=== PATIENT | male | born 2000 | race African-American/Black ===

== ENCOUNTER 2019-09-30 15:07 | Inpatient (IN) | payer OTHER ==
[~2019-09-30] VITALS: Ht 175.3 cm; Wt 86.0 kg
[2019-09-30 16:42] LABS: MEAN CORPUSCULAR HEMOGLOBIN 28.5 pg (27.0-33.0); MEAN CORPUSCULAR HGB CONC 33.3 g/dl (32.0-36.5); MEAN CORPUSCULAR VOLUME 85.4 fl (80.0-96.0); PLATELET COUNT, AUTOMATED 181 10^3/uL (150-450); RED BLOOD COUNT 4.92 10^6/uL (4.30-6.10); WHITE BLOOD COUNT 8.1 10^3/uL (4.0-10.0)
[2019-09-30 17:07] LABS: AMPHETAMINES LEVEL URINE NEGATIVE (NEGATIVE); BARBITURATES URINE NEGATIVE (NEGATIVE); BENZODIAZEPINES URINE NEGATIVE (NEGATIVE); CANNABINOIDS URINE NEGATIVE (NEGATIVE); COCAINE METABOLITE URINE NEGATIVE (NEGATIVE); METHADONE URINE NEGATIVE (NEGATIVE); OPIATES URINE NEGATIVE (NEGATIVE); PHENCYCLIDINE URINE NEGATIVE (NEGATIVE)
[2019-09-30 17:27] LABS: ACETAMINOPHEN LEVEL < 2.0 UG/ML (10.0-30.0); ALBUMIN 3.9 GM/DL (3.2-5.2); ALT/SGPT 33 U/L (12-78); BILIRUBIN,DIRECT 0.3 MG/DL (0.0-0.2); BILIRUBIN,TOTAL 0.8 MG/DL (0.2-1.0); BLOOD UREA NITROGEN 12 MG/DL (7-18); CALCIUM LEVEL 8.9 MG/DL (8.5-10.1); CARBON DIOXIDE LEVEL 31 MEQ/L (21-32); CHLORIDE LEVEL 104 MEQ/L (98-107); CREATININE FOR GFR 1.02 MG/DL (0.70-1.30); ETHYL ALCOHOL (ETHANOL) < 0.003 % (0.000-0.010); GLUCOSE, FASTING 96 MG/DL (70-100); SALICYLATE LEVEL < 1.7 MG/DL (5.0-30.0); SODIUM LEVEL 140 MEQ/L (136-145); TOTAL PROTEIN 7.3 GM/DL (6.4-8.2)
[2019-09-30] MEDS ORDERED: ACETAMINOPHEN TAB 650MG DOSE (2X325MG) PO PRN (18:30)
[2019-09-30] MEDS ORDERED: MAALOX 30 ML SUSP *UDC PO PRN (18:30)
[2019-09-30] MEDS ORDERED: traZODone 50 MG TAB PO PRN (18:30)
[2019-09-30] MEDS ORDERED: MOM 30ML SUSPENSION UDC PO PRN (18:30)
[2019-09-30 21:40] VITALS: BP 113/55
[2019-10-01 07:15] VITALS: BP 105/62
--- NOTE | 2019-10-01 12:29 | REP ---
Clinical: Trauma. Technique: AP, lateral, bilateral oblique views right hand . Findings: The osseous structures and joint spaces are intact and normal. There is no evidence for acute fracture or dislocation. Surrounding soft tissues are unremarkable. No subcutaneous emphysema or radiodense foreign body. Impression: No obvious acute fracture or dislocation. Electronically Signed by Emory Riojas MD 10/01/2019 12:21 P
[2019-10-01 16:14] VITALS: BP 120/60
[2019-10-02 06:27] VITALS: BP 123/59
--- NOTE | 2019-10-02 08:03 | HPE ---
DATE OF ADMISSION: 09/30/2019 CHIEF COMPLAINT: Depression. Right thumb pain. 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 Complains of right thumb pain at the base of the thumb with 5 out of 10 pain with flexion extension but no difficulty with handwriting. He is right-handed at baseline or eating. Patient otherwise denies any other complaints. 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 Patient had a prior history of traumatic injury with a metal object about a year ago. Not evaluated by continues to cause pain now and again. Patient otherwise denies fevers, chills, nausea, vomiting diarrhea, abdominal pain, shortness of breath, chest pain, pressure tightness, lightheadedness, weight gain, weight loss, changes in appetite insomnia. Patient has been having some depression. Denies any usual rashes, lymphadenopathy or muscle aches or joint pain. PAST MEDICAL HISTORY: None. PAST SURGICAL HISTORY: None. ALLERGIES: No known drug allergies. HOME MEDICATIONS: None. HOSPITAL MEDICATIONS: - trazodone 50 mg nightly as needed - Tylenol 650 mg every 6 hours as needed - Milk of Magnesia 30 mL as needed - Mylanta 30 mL by mouth every 4hours as needed SOCIAL HISTORY: Active duty at [employer]. Denies recreational drug use, alcohol or tobacco use. FAMILY HISTORY: Mother and father are alive and well. Mother is in her 50s with hypertension. Father in his 60s unknown medical problems. One brother in his 30s. Once sister in her 30s. REVIEW OF SYSTEMS: Per history of present illness (HPI), 12-point system is otherwise negative. PHYSICAL EXAMINATION: Temperature 98.2, pulse 74, respiratory 14, blood pressure 105/62, 99% on room air. Generally, patient is awake, alert, oriented times three answering questions appropriately. No jugular venous distention (JVD). No thyromegaly. Anicteric sclerae. No jaundice. Moist mucous membranes. Lungs are clear to auscultation. No wheeze, rales or rhonchi. Heart: S1, S2, sinus rhythm. Abdomen is soft, nontender, nondistended. Positive bowel sounds. Extremities: No cyanosis, clubbing or pitting edema. Right thumb has limited range of motion due to pain with extension and flexion touching the 5th digit. He has proximal interphalangeal (PIP) joint abnormality with no change in sensation. LABORATORY DATA: 09/30/2019 CBC and metabolic panel all have been reviewed. ASSESSMENT/PLAN: 18-year-old with traumatic injury with a metal object of the right base of the thumb. Continues to have occasional pain with extension and flexion but no weakness. Able to perform his ADLs. Rate pain as a 5/10 pain. Currently on as needed Tylenol every 6 hours. IMPRESSION: 1. Depression: Managed by psychiatrist. Currently, admitted to inpatient mental health unit. 2. Right thumb pain status post traumatic injury 1 year ago. Patient has no laxity on examination, able to fully extend and flex but with some pain. Therefore, will obtain an x-ray and if possible MRI of the hand on Thursday. Referral to hand surgeon as an outpatient.
--- NOTE | 2019-10-02 09:21 | MHHPE ---
DATE OF ADMISSION: 09/30/2019 HISTORY OF PRESENT ILLNESS: This admission is conducted via telepsychiatry due the current coronavirus crisis. 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 He actually handed a pocket knife to his commander and voiced suicidal thoughts. He had sent all of his money from his bank account to his mother in preparation. The patient's major stressor was the fact that he had been threatened with an article 15. The patient tells me today "I was in a bad head space and facing disciplinary action and I was freaked". The patient states that he actually had suicidal thoughts again early this year because he was also involved in some disciplinary action. He tells me today that he is not having any depression and that he is not feeling suicidal anymore. I did not elicit any hypermanic or manic like symptoms, posttraumatic stress disorder (PTSD), obsessive compulsive disorder (OCD) or panic like symptoms in this patient. PAST PSYCHIATRIC HISTORY: He says he never had any outpatient or inpatient psychiatric treatment before. He says he has never made suicidal attempts. FAMILY HISTORY: He says there is no psychiatric illness in the family and no suicides. MEDICAL HISTORY: There are no acute medical problems in this patient. SUBSTANCE ABUSE: He denies any problems with alcohol or drugs. Toxicology screen was negative. ABUSE HISTORY: He denies any history of any physical or sexual abuse. REVIEW OF SYSTEMS: VITAL SIGNS: Blood pressure 105/62, pulse 74, respirations 14. APPEARANCE: He did not appear to be in any apparent distress. NEUROMUSCULAR SYSTEM: The patient did not exhibit any involuntary movements of his extremities. I did not observe his gait. All other systems were reviewed and found to be negative. MENTAL STATUS EXAMINATION: This patient is alert and oriented times 3. Eye contact is fair. Psychomotor activity is normal. He is verbally spontaneous. There is no formal thought disorder noted. He says that his mood is okay. Affect is flat. He is not psychotic. He is denying suicidal or homicidal ideations today. Concentration is fairly good. Memory intact. Insight and judgment are fair. DIAGNOSES: 1. Adjustment disorder with disturbance of mood and conduct. TREATMENT PLAN: At this point, the patient is denying that he is feeling suicidal. He states that he is not feeling depressed. However, the patient appeared to have significant suicidal thoughts, hence he went ahead and transferred all of his money to his mother's bank. At this point, I think he might be minimizing his symptoms and I feel that we need to further evaluate him for further elevation and stabilizing of his mood and further resolution of suicidal ideations. It is also important that there be a meeting with this patient's chain of command being that apparently he has upcoming discipline problems and it seems that this patient very quickly becomes suicidal when ever he is threatened with disciplinary action. At this point, I do not think that he needs to be treated with any medications.
[2019-10-02 16:07] VITALS: BP 131/57
[2019-10-03 06:34] VITALS: BP 131/80
--- NOTE | 2019-10-03 10:03 | MHDSPDOC ---
[facility] Discharge Summary Discharge Summary DATE OF ADMISSION: September 30, 2019 at 18:28 DATE OF DISCHARGE: 10/03/2019 Discharge Blake Curran MRN: N/[id number] Date of : N/A Date of Service: 10/03/2019 Diagnoses Unspecified depressive disorder. Alcohol use disorder, unspecified. 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 He is brought in and admitted out of an abundance of caution but had repeatedly denied that he had any suicidal or homicidal ideation. Consultants Involved Hospitalist/PCP screening Treatment and Progress On The Unit The patient was admitted on the inpatient unit, started primarily supportively with no standing medications after being admitted. He was observed for well over 3 days with no suicidal or homicidal ideation observed or heard. He was in behavioral control during the entirety of his admission and respectively requested discharge after 3 days. He had an entirely uneventful admission. Discharge Assessment 18-year-old young man is admitted out of an abundance of caution after re portedly making statements. It appears that there is no evidence to further keep him. Unclear if underlying depression. The patient at the time of discharge did not meet criteria for involuntary admission/extension due to having a normal mental status exam, fair insight into the situation, They are engaged in the discharge process, as well as being friendly and amenable in behavioral control and havent been engaging in any observed concerning behavior or ideation recently. They decline voluntary extension/admission at this time and must be discharged in good long, as Im unable to make a case for holding the patient against their will. They may have historical risk factors of admissions and other interactions with psychiatry however, those are not modifiable from a clinical perspective. The patient will need to be discharged in good long. Mental Status Examination General: Well dressed with good hygiene Speech: Spontaneous and fluid Thought processes: Linear and logical MSK: Smooth and coordinated gait, no signs of tremors or involuntary orofacial movements Thought content: Future orientated Abstract reasoning, and computation: Intact Description of associations: Intact Description of abnormal or psychotic thoughts: Denies any suicidal or homicidal ideation. Denies any auditory or visual hallucinations. Does not appear to be responding to internal stimuli. Does not appear to be endorsing any bizarre or paranoid ideation. Judgment: fair Insight: fair Orientation: Alert and orientated 3 Cognition: Grossly normal Recent and remote memory: Intact Attention span and concentration: Intact Fund of knowledge: Adequate Mood: "okay" Affect: Euthymic with a full range Follow Up The social work team worked during the predischarge meeting in order to evaluate for further issues of lethality address them fully before discharge. They worked on safety planning with the patient's family members in order to ensure that the patient will have a safe and effective discharge. Time Spent The amount of time spent in the coordination of care for this patient was approximately 45 minutes. Thursday Vital Signs/I&Os Vital Signs Date Time Temp Pulse Resp B/P (MAP) Pulse Ox O2 Delivery O2 Flow Rate FiO2 10/03/19 06:34 96.9 69 12 131/80 (97) Room Air 10/01/19 07:15 99 Medications No Active Prescriptions or Reported Meds Allergies Coded Allergies: No Known Allergies (Unverified , 09/30/19) ELIZABETH HORAN DO October 03, 2019 10:03
--- NOTE | 2019-10-03 23:22 | MHIPN ---
DATE: 10/02/2019 Patient today states, "I'm doing fine." He says that he slept well. He tells me that he is feeling less depressed and that he is not having any suicidal thoughts. MENTAL STATUS EXAMINATION: Patient is alert and oriented times three. Eye contact is very good. He is verbally spontaneous. There is no formal thought disorder noted. He says his mood is "fine." Affect restricted but appropriate to mood. He is not psychotic. He continues to deny suicidal, homicidal ideations. Concentration is fair. Memory intact. Insight and judgment are fair. DIAGNOSIS: Adjustment disorder with disturbance of mood and conduct. TREATMENT PLAN: At this point, we will continue to monitor the patient's continued stabilization of mood symptoms and the patient's continued denial of suicidal ideation. SEBASTIAN
== END 2019-10-03 14:15 | disposition home or self-care (01) | DRG 881 ==
LOC: M ED 15:07 → M ED INP 18:28 → M PSY 21:00
PROVIDERS: ADMIT Psychiatry & Neurology Psychiatry; ATTEND Psychiatry & Neurology Addiction Medicine
DX: F32.9 Major depressive disorder, single episode, unspecified (principal); R45.851 Suicidal ideations; Z56.2 Threat of job loss; M25.541 Pain in joints of right hand; F10.10 Alcohol abuse, uncomplicated

== ENCOUNTER 2020-01-24 11:32 | Emergency (ER) | payer OTHER ==
[~2020-01-24] VITALS: Ht 172.7 cm; Wt 93.5 kg
[2020-01-24 11:34] VITALS: BP 116/65
[2020-01-24 12:54] LABS: BASO % 0.6 % (0.0-1.0); EOS # 0.3 10^3/uL (0.0-0.5); EOS % 4.7 % (0.0-3.0); HEMATOCRIT 46.9 % (42.0-52.0); HEMOGLOBIN 15.2 g/dl (13.5-17.5); LYMPH # 1.7 10^3/uL (1.5-5.0); LYMPH % 23.9 % (24.0-44.0); MEAN CORPUSCULAR HEMOGLOBIN 28.4 pg (27.0-33.0); MEAN CORPUSCULAR HGB CONC 32.4 g/dl (32.0-36.5); MEAN CORPUSCULAR VOLUME 87.7 fl (80.0-96.0); MONO # 0.5 10^3/uL (0.0-0.8); MONO % 7.5 % (0.0-5.0); NEUTROPHILS # 4.6 10^3/uL (1.5-8.5); NEUTROPHILS % 62.9 % (36.0-66.0); PLATELET COUNT, AUTOMATED 191 10^3/uL (150-450); RED BLOOD COUNT 5.35 10^6/uL (4.30-6.10); WHITE BLOOD COUNT 7.2 10^3/uL (4.0-10.0)
== END 2020-01-24 13:14 | disposition home or self-care (01) ==
LOC: M ED 11:32
DX: R04.0 Epistaxis (principal)

== ENCOUNTER 2020-12-17 11:45 | Emergency (ER) | payer OTHER ==
[~2020-12-17] VITALS: Ht 175.3 cm; Wt 106.0 kg
[2020-12-17 11:47] VITALS: BP 121/66
[2020-12-17] MEDS ORDERED: NAPR-885 PO (12:25)
[2020-12-17] MEDS ORDERED: FLON1SPR NARES (17:25)
== END 2020-12-17 18:06 | disposition home or self-care (01) ==
LOC: M ED 17:33
DX: G44.89 Other headache syndrome (principal); J30.2 Other seasonal allergic rhinitis